=== PATIENT | female | born 1980 | race Two or more races ===

== ENCOUNTER 2019-09-02 07:32 | Emergency (ER) | payer OTHER ==
[2019-09-02 07:38] VITALS: BP 139/88; PULSE 90; TEMP 99.4; BMI 21.9
--- NOTE | 2019-09-02 07:47 | PDOC ---
Rapid Medical Evaluation Chief Complaint: Cold Symptoms Time Seen by Provider: 09/02/19 07:35 Medical Evaluation: Vital Signs Temp Pulse Resp BP Pulse Ox 99.4 F 90 19 139/88 100 09/02/19 07:35 09/02/19 07:35 09/02/19 07:35 09/02/19 07:35 09/02/19 07:35 09/02/19 07:39 Pt is a 39 y/o female who presents to the ED with complaint of 3 weeks of sinus pressure, difficulty breathing and general unwell feeling. She denies an past medical history. She states she saw her primary doctor last week and was started on loratadine for the same problem. She denies any sob or cp. She has not history gestational HTN. She denies any fevers. She has not been taking anything other than her loratadine. Review of Systems Able to Perform ROS?: Yes Constitutional: No: Fever, Chills, Loss of Appetite, Night Sweats, Weakness HEENTM: No: Eye Pain, Vision changes, Ear Pain, Throat Pain, Throat Swelling, Mouth Pain, Difficulty Swallowing; + sinus pressure Respiratory: No: Cough, Shortness of Breath, Wheezing, Sputum Production Cardiac (ROS): No: Chest Pain, Chest Tightness, Palpitations, Irregular Heart Beat, Edema ABD/GI: No: Nausea, Vomiting, Abdominal Pain, Diarrhea : No Dysuria, No Hematuria, No Frequency, No Urgency Musculoskeletal: No: Muscle Pain, Back Pain, Joint Pain, Muscle Weakness, Neck Pain Integumentary: No: Lesions, Rash Neurological: No: Headache, Numbness, Tingling, Weakness, Speech Difficulties - Physical Exam General Appearance: Nourished, Appropriately Dressed, No Distress HEENT: EOMI, Normal Voice, No Pharyngeal Erythema, No Muffled/Hoarse voice, No Tonsillar Exudate, No Tonsillar Erythema, No Nasal Congestion, No Rhinorrhea, Hearing Grossly Normal Neck: Supple, No Lymphadenopathy (R), No Lymphadenopathy (L), No Rigidity, No Decreased range of motion Respiratory/Chest: Lungs Clear, Normal Breath Sounds. No Respiratory Distress, No Accessory Muscle Use; Good air entry b/l, no wheezes/rales/rhonchi, no retractions Cardiovascular: Regular Rhythm, Regular Rate, S1, S2 Gastrointestinal/Abdominal: Normal Bowel Sounds, Soft. Non-tender, No Guarding, No Rebound, No Rigidity Musculoskeletal: Normal Inspection. No Decreased Range of Motion Extremity: Normal Capillary Refill, Normal Inspection Integumentary: Normal Color, Dry. No Rash Neurologic: regional sales leader II-XII NML intact, Fully Oriented, Alert, Normal Mood/Affect, Normal Response Assessment: Pt is a 39 y/o female with history of sinus pressure for the last 3 weeks. Plan: The patient has been made aware that her lungs are clear and she does not appear to have an acute infection. She has been made aware that we are currently only testing for COVID under specific conditions. She should continue her loratadine and she should f/u with her PMD within 2 days. She understands and agrees with this treatment and plan and she is stable for discharge. Discharge Disposition - Diagnosis Sinus pressure - Discharge Dispostion Disposition: HOME Condition at time of disposition: Stable - Referrals - Patient Instructions Printed Discharge Instructions: DI for Sinusitis Additional Instructions: Get plenty of rest and drink plenty of fluids. Be sure to follow up with your primary doctor within 2 days. Take Tylenol for fevers. - Post Discharge Activity Work/School Note: Back to Work
== END 2019-09-02 07:59 | disposition home or self-care (01) ==
LOC: JER 07:32
DX: R51 Headache (principal)
CPT/HCPCS: 99285-25

== ENCOUNTER 2020-04-29 03:42 | Emergency (ER) | payer OTHER ==
[2020-04-29 03:49] VITALS: BMI 27.4
[2020-04-29] MEDS ORDERED: LIDOCAINE 5% TOPICAL PATCH TP ONE (04:35)
[2020-04-29] MEDS ORDERED: LIDOCAINE 5% TOPICAL PATCH ONE (04:42)
[2020-04-29 06:21] LABS: HCG,QUALITATIVE URINE Negative
[2020-04-29] MEDS ORDERED: KETOROLAC TROMETHAMINE 15 MG/ML VIAL IM ONE (06:28)
[2020-04-29 06:35] LABS: EPI CELLS 5 /uL (0-25.1); HYALINE CASTS 0 /uL (0-3.1); URINE APPEARANCE CLEAR; URINE BACTERIA 70 /uL (0-1359); URINE BILIRUBIN NEGATIVE (NEGATIVE); URINE COLOR YELLOW; URINE GLUCOSE (UA) NEGATIVE (NEGATIVE); URINE KETONE NEGATIVE (NEGATIVE); URINE LEUK ESTERASE NEGATIVE (NEGATIVE); URINE NITRITE NEGATIVE (NEGATIVE); URINE PROTEIN NEGATIVE (NEGATIVE); URINE RBC 269 /uL (0-23.9); URINE UROBILINOGEN 0.2 mg/dL (0.2-1.0); URINE WBC 4 /uL (0-25.8)
[2020-04-29] MEDS ORDERED: diazePAM 5 MG TABLET PO ONE (06:53)
[2020-04-29] MEDS ORDERED: KETOROLAC TROMETHAMINE 15 MG/ML VIAL ONE (06:54)
[2020-04-29] MEDS ORDERED: diazePAM 5 MG TABLET ONE (06:55)
[2020-04-29] MEDS ORDERED: ACETAMINOPHEN 325 MG TABLET (FP) PO ONE (09:12)
[2020-04-29 10:57] VITALS: BP 106/49; PULSE 57; TEMP 98.6
[2020-04-29] MEDS ORDERED: LIDOCAINE PATCH REMOVAL MC ONE (17:00)
== END 2020-04-29 10:50 | disposition home or self-care (01) ==
LOC: JER 03:42
PROC: 3E0233Z Introduction of Anti-inflammatory into Muscle, Percutaneous Approach (ICD-10-PCS; principal; 2020-04-29)
DX: M62.838 Other muscle spasm (principal)
CPT/HCPCS: 72100-TC-FY; 72131-TC; 72170-TC-FY; 72192-TC; 81003; 84703; 87086; 99285-25